=== PATIENT | male | born 1955 | race African-American/Black ===

== ENCOUNTER 2021-06-23 15:35 | Inpatient (IN) | payer BC ==
[2021-06-23] MEDS ORDERED: BISMUTH SUBSALICYLATE 524 MG/30 ML PO PRN (17:36)
[2021-06-23] MEDS ORDERED: MAGNESIUM CITRATE 300 ML BOTTLE PO PRN (17:36)
[2021-06-23] MEDS ORDERED: MAGNESIUM HYDROX 2400MG/30ML ORAL SUSPENSION 30 ML CUP PO PRN (17:36)
[2021-06-23] MEDS ORDERED: P-EPHED 60MG/TRIPROLIDI 2.5MG TABLET PO PRN (17:36)
[2021-06-23] MEDS ORDERED: ACETAMINOPHEN 325 MG TABLET (FP) PO PRN (17:36)
[2021-06-23] MEDS ORDERED: ONDANSETRON *ODT* 4 MG TABLET SL PRN (17:36)
[2021-06-23] MEDS ORDERED: guaiFENesin 200 MG/10 ML 10 ML UNIT-DOSE CUPS PO PRN (17:36)
[2021-06-23] MEDS ORDERED: MENTHOL/PHENOL 1 EACH UD MM PRN (17:36)
[2021-06-23] MEDS ORDERED: MAG HYDROX/AL HYDROX/SIMETH 30 ML UNIT-DOSE CUP PO PRN (17:36)
[2021-06-23] MEDS ORDERED: IBUPROFEN 400 MG TABLET (FP) PO PRN (17:36)
[2021-06-23 22:51] VITALS: BMI 38.9
[2021-06-23] MEDS: ACETAMINOPHEN 325 MG TABLET (FP) PO PRN (23:14)
[2021-06-23] MEDS: THIAMINE HCL 100 MG TABLET (FP) PO SCH (23:15)
[2021-06-23] MEDS: MELATONIN 5 MG TABLETS PO SCH (23:15)
[2021-06-23] MEDS ORDERED: LISINOPRIL 5 MG TABLET PO ONE (23:24)
[2021-06-24] MEDS ORDERED: methaDONE HCL 10 MG TABLET (FOR DETOX USE ONLY) PO ONE (10:50)
[2021-06-24] MEDS: PRENATAL VITAMINS W/ FOLIC ACID TABLET (FP) PO SCH (11:02)
[2021-06-24] MEDS: LISINOPRIL 5 MG TABLET PO SCH (12:03)
[2021-06-24 12:17] LABS: HEMATOCRIT 38.6 % (35.4-49); HEMOGLOBIN 12.5 GM/dL (11.7-16.9); MCH 28.2 pg (25.7-33.7); MCHC 32.4 g/dl (32.0-35.9); MEAN CELL VOLUME 87.1 fl (80-96); MEAN PLT VOLUME 8.6 fl (7.5-11.1); PLATELET COUNT 261 10^3/uL (134-434); RBC 4.44 M/mm3 (4.00-5.60); RDW 14.7 % (11.9-15.9); WHITE BLOOD COUNT 6.6 K/mm3 (4.0-10.0)
[2021-06-24 12:23] LABS: ALBUMIN 3.2 g/dl (3.4-5.0); BLOOD UREA NITROGEN 9.2 mg/dL (7-18)
[2021-06-24 12:26] LABS: CREATININE 0.9 mg/dL (0.55-1.3)
[2021-06-24 12:27] LABS: BILIRUBIN,TOTAL 0.9 mg/dL (0.2-1); TOT PROT 7.3 g/dl (6.4-8.2)
[2021-06-24 14:21] LABS: HIV INTERPRETATION NEGATIVE (NEGATIVE)
[2021-06-24] MEDS: metFORMIN HCL 500 MG TABLET (FP) PO SCH (17:27)
[2021-06-24] MEDS: THIAMINE HCL 100 MG TABLET (FP) PO SCH (22:01)
[2021-06-24] MEDS: MELATONIN 5 MG TABLETS PO SCH (22:01)
[2021-06-24] MEDS: ACETAMINOPHEN 325 MG TABLET (FP) PO PRN (22:01)
[2021-06-25] MEDS: metFORMIN HCL 500 MG TABLET (FP) PO SCH ×2 (06:36→17:56)
[2021-06-25] MEDS ORDERED: TAMSULOSIN HCL 0.4 MG CAP PO SCH (08:30)
[2021-06-25] MEDS: PRENATAL VITAMINS W/ FOLIC ACID TABLET (FP) PO SCH (10:10)
[2021-06-25] MEDS ORDERED: methaDONE HCL 10 MG TABLET (FOR DETOX USE ONLY) ONE (10:54)
[2021-06-25] MEDS: LISINOPRIL 5 MG TABLET PO SCH (11:17)
[2021-06-25] MEDS: THIAMINE HCL 100 MG TABLET (FP) PO SCH (22:07)
[2021-06-25] MEDS: MELATONIN 5 MG TABLETS PO SCH (22:07)
[2021-06-26] MEDS: metFORMIN HCL 500 MG TABLET (FP) PO SCH (07:18)
[2021-06-26 08:18] VITALS: BP 127/67; PULSE 56; TEMP 97.7
[2021-06-26] MEDS ORDERED: methaDONE HCL 10 MG TABLET (FOR DETOX USE ONLY) PO ONE (10:00)
== END 2021-06-26 10:16 | disposition home or self-care (01) | DRG 897 ==
LOC: YASAS 15:35 → Y3N 22:06
PROVIDERS: ADMIT Allergy & Immunology; ATTEND Allergy & Immunology
PROC: HZ2ZZZZ Detoxification Services for Substance Abuse Treatment (ICD-10-PCS; principal; 2021-06-23)
DX: F11.23 Opioid dependence with withdrawal (principal); F17.210 Nicotine dependence, cigarettes, uncomplicated; I10 Essential (primary) hypertension; E78.5 Hyperlipidemia, unspecified; E11.9 Type 2 diabetes mellitus without complications; Z79.84 Long term (current) use of oral hypoglycemic drugs; E66.9 Obesity, unspecified; Z68.38 Body mass index [BMI] 38.0-38.9, adult
CPT/HCPCS: 36415; 80053; 82962; 85027; 86780; 87389; C9803; U0003; U0005